=== PATIENT | female | born 1985 | race African-American/Black ===

== ENCOUNTER 2023-12-10 10:03 | Emergency (ER) | payer OTHER, SELFPAY ==
[2023-12-10] VITALS (17 sets, daily range): BP systolic 115–127; BP diastolic 89–113; PULSE 77–103; RESP 12–24; TEMP 36.7–37.1; O2SAT 72–100
--- NOTE | 2023-12-10 10:13 | ECG_ITS ---
Test Date: 2023-12-10 10:20:53 Measurements Intervals [place] Rate: 95 P: 55 CO: 152 QRS: 3 QRSD: 70 T: 5 QT: 323 QTc: 406 Interpretive Statements SINUS RHYTHM MINIMAL Q WAVES- HIGH LATERAL LEADS BORDERLINE ST-T WAVE ABNORMALITY- ANT/INF LEADS BASELINE ARTIFACT- I, II, AVR, AVL, V1, V3 BORDERLINE ECG No previous ECG available for comparison Electronically Signed On 12-10-2023 15:51:08 CDT by Shabbir Bae D.O.
[2023-12-10] MEDS: SODIUM CHLORIDE 0.9% IV 1,000 ML 999 ML IV CONT (11:08)
[2023-12-10] MEDS: KETOROLAC 30 MG/ML VIAL (*BKC) IV PUSH (11:08)
[2023-12-10 11:33] LABS: Influenza A QL RT-PCR Negative (Negative); Influenza B QL RT-PCR Negative (Negative); RSV RNA, RT-PCR Negative (Negative); SARS-CoV-2 RNA PCR Negative (Negative)
--- NOTE | 2023-12-10 11:47 | ED.GENADULT ---
HPI - General Adult General Chief complaint: Upper Respiratory Infection Stated complaint: dizzy, fever Time Seen by Provider: 12/10/23 10:17 History of Present Illness HPI narrative: Patient is a 38-year-old female who presents ER with multiple issues. Main complaint is feeling fatigued and weak. Ongoing over last couple days. She reports she is been around her child who is also sick. She feels like she has a little disoriented times due to this. No documented fevers. No productive cough. Mild nasal congestion. She has had poor oral intake of food water due to feeling fatigued. No urinary symptoms. Related Data Allergies Allergy/AdvReac Type Severity Reaction Status Date / Time No Known Allergies Allergy Verified 12/10/23 11:04 Review of Systems Constitutional: Constitutional: Denies chills, Reports fatigue and Denies fever(s) ENT: Reports nasal congestion and Denies sore throat Cardiovascular: Cardiovascular: Reports no additional cardiovascular complaints Respiratory: Respiratory: Reports no additional respiratory complaints PMF Past Medical History Medical History (Updated 12/10/23 @ 11:50 by Sanket Egan MD) Healthy female adult Exam Narrative: GENERAL: Well-appearing, well-nourished, and in no acute distress. HEAD: Normocephalic, atraumatic. ENT: Mucous membranes moist. TM's normal bilaterally. CHEST: Clear to auscultation. No respiratory distress. HEART: Regular rate and rhythm. Normal peripheral pulses. EXTREMITIES: Normal range of motion. No edema. NEURO: Alert and oriented x3. PSYCH: Normal mood and affect. Course Course Emergency Course: COVID/flu/RSV negative. Patient received 1 L IV fluid. Discussed discharge plan. Vital Signs Vital signs: Vital Signs Temperature 98.0 F 12/10/23 10:36 Pulse Rate 103 H 12/10/23 10:36 Respiratory Rate 16 12/10/23 10:36 Blood Pressure 118/96 H 12/10/23 10:36 Pulse Oximetry 100 12/10/23 10:36 Oxygen Delivery Room Air 12/10/23 10:36 Temperature 98.0 F 12/10/23 10:36 Pulse Rate 103 H 12/10/23 10:36 Respiratory Rate 16 12/10/23 10:36 Blood Pressure 118/96 H 12/10/23 10:36 Pulse Oximetry 100 12/10/23 10:36 Oxygen Delivery Room Air 12/10/23 10:40 Medical Decision Making Vital Signs Vital Signs: Vital Signs Temperature 98.0 F 12/10/23 10:36 Pulse Rate 103 H 12/10/23 10:36 Respiratory Rate 16 12/10/23 10:36 Blood Pressure 118/96 H 12/10/23 10:36 Pulse Oximetry 100 12/10/23 10:36 Oxygen Delivery Room Air 12/10/23 10:36 Temperature 98.0 F 12/10/23 10:36 Pulse Rate 103 H 12/10/23 10:36 Respiratory Rate 16 12/10/23 10:36 Blood Pressure 118/96 H 12/10/23 10:36 Pulse Oximetry 100 12/10/23 10:36 Oxygen Delivery Room Air 12/10/23 10:40 Lab Data Labs: Lab Results 12/10/23 Range/Units 10:51 Influenza A (RT-PCR) Negative (Negative) Influenza B (RT-PCR) Negative (Negative) RSV (RT-PCR) Negative (Negative) SARS-CoV-2 RNA (RT-PCR) Negative (Negative) Discharge Plan Discharge Clinical Impression: Acute viral syndrome Patient Disposition: Home, Self-Care Condition: Stable Instructions: Viral Syndrome (ED) Additional Instructions: As discussed you have a viral illness. Unfortunately there are no specific medications we can give you to make the illness end faster. Antibiotics do not work for viral illnesses. However, you can take Acetaminophen or Ibuprofen to help with fevers and pain. Stay well hydrated and rested. Return to the emergency department if your fevers and chills continue to worsen after 5 days, if you develop worsening cough with thick sputum, or are unable to stay hydrated. Contact your primary care provider in the next few days for a re-evaluation and to make sure your symptoms are improving. Follow-up/Referrals: [facility] [Primary Care Provider] - 1 Week
[2023-12-10] MEDS: ACETAMINOPHEN 325 MG TABLET 650 MG PO (11:59)
== END 2023-12-10 13:11 | disposition home or self-care (01) ==
PROVIDERS: Emergency Provider Emergency Medicine
DX: B34.9 Viral infection, unspecified (principal); Z20.822 Contact with and (suspected) exposure to COVID-19
CPT/HCPCS: 87637; 93005; 96361; 96374; 99284; A9270; J1885; J7030